=== PATIENT | female | born 1955 | race Caucasian/White ===

== ENCOUNTER → 2019-02-28 | Outpatient (CLI) | payer BC ==
[~2019-02-28] MED LIST: AZOR PO; HORMONE REPLACEMENT; HYDACE5 PO; OLME20 PO; SPIR50 PO
[2019-03-01 07:06] LABS: Candida species (DNA Probe) Negative (NEGATIVE); G. vaginalis (DNA Probe) Negative (NEGATIVE); T. vaginalis (DNA Probe) Negative (NEGATIVE)
== END ==
LOC: LAB 15:40 → LAB SHORT 15:40
PROVIDERS: Obstetrics & Gynecology
DX: N76.0 Acute vaginitis (principal)
CPT/HCPCS: 87480; 87510; 87660

== ENCOUNTER 2022-07-21 13:34 | Day surgery (SDC) | payer MEDICARE ==
[~2022-07-21] VITALS: Ht 165.1 cm; Wt 83.2 kg
[2022-07-21] MEDS ORDERED: EUTHYROX125 MCG PO (14:32)
[2022-07-21] MEDS ORDERED: LOSA50 PO (14:34)
[2022-07-21] MEDS ORDERED: WARF5 PO (14:34)
[2022-07-21] MEDS ORDERED: NIFE60ER PO (14:35)
[2022-07-21] MEDS ORDERED: CLIMARA1 EACH PO (14:36)
--- NOTE | 2022-07-21 14:47 | NUR ---
07/21/22 1447 ELE POOLEECAINE: 1430 PLEDGIT: 1439
--- NOTE | 2022-07-21 15:59 | NUR ---
07/21/22 1559 Oliverio Rowell PT REPORTED FLOATERS IN HER EYES, BUT SAID THE SAME AMOUNT OF FLOATERS HAD BEEN THERE PRIOR TO SURGERY. PT WAS ADVISED TO CONTACT DR. HARDING IF SHE EXPERIENCED A SUDDEN NEW BURST OF FLOATERS. PT WAS HYPERTENSIVE IN STEP DOWN (SEE VITALS RECORDS). HOWEVER, BP'S WERE LOWER THAN PRE-OP. PT WAS INSTRUCTED TO FOLLOW UP WITH PCP REGARDING HYPERTENSION NORBERTO.
== END 2022-07-21 15:40 | disposition home or self-care (01) ==
LOC: ORSCSDS 13:34
PROVIDERS: Ophthalmology
PROC: 08DK3ZZ Extraction of Left Lens, Percutaneous Approach (ICD-10-PCS; principal; 2022-07-21 15:00)
DX: H25.12 Age-related nuclear cataract, left eye (principal); I10 Essential (primary) hypertension; E66.9 Obesity, unspecified; Z79.01 Long term (current) use of anticoagulants; Z68.30 Body mass index [BMI] 30.0-30.9, adult; Z85.850 Personal history of malignant neoplasm of thyroid; Z79.84 Long term (current) use of oral hypoglycemic drugs; Z79.899 Other long term (current) drug therapy
CPT/HCPCS: J2001; J2250; J3010; J3301; J7040; V2632

== ENCOUNTER 2022-07-30 11:16 | Day surgery (SDC) | payer MEDICARE ==
[~2022-07-30] VITALS: Ht 167.6 cm; Wt 82.5 kg
[~2022-07-30 11:16] MED LIST changes: +CLIMARA1 EACH PO; +EUTHYROX125 MCG PO; +LOSA50 PO; +NIFE60ER PO; +WARF5 PO
--- NOTE | 2022-07-30 11:52 | NUR ---
07/30/22 1152 Lisa Canas 1136 PLEDGET 1131
== END 2022-07-30 13:13 | disposition home or self-care (01) ==
LOC: ORSCSDS 11:16
PROVIDERS: Ophthalmology
PROC: 08RJ3JZ Replacement of Right Lens with Synthetic Substitute, Percutaneous Approach (ICD-10-PCS; principal; 2022-07-30 12:30)
DX: H25.11 Age-related nuclear cataract, right eye (principal); I10 Essential (primary) hypertension; Z79.01 Long term (current) use of anticoagulants; Z79.899 Other long term (current) drug therapy; Z85.850 Personal history of malignant neoplasm of thyroid
CPT/HCPCS: J2001; J2250; J3010; J3301; J7040; V2632